=== PATIENT | male | born 1930 | race Caucasian/White ===

== ENCOUNTER 2017-09-11 14:16 | Inpatient (IN) | payer OTHER, MEDICARE ==
[~2017-09-11] VITALS: Ht 190.5 cm; Wt 83.0 kg
[2017-09-11 14:24] VITALS: BP_SYST 137
[2017-09-11] MEDS ORDERED: AMI200 GT (15:22)
[2017-09-11 15:25] LABS: BILIRUBIN,URINE NEGATIVE (NEGATIVE); CLARITY/URINE CLEAR (CLEAR); COLOR,URINE YELLOW (YELLOW); GLUCOSE,URINE NEGATIVE (NEGATIVE); KETONES,URINE NEGATIVE (NEGATIVE); LEUKOCYTE ESTERASE ,URINE 3+ (NEGATIVE); NITRITE, URINE NEGATIVE (NEGATIVE); PROTEIN URINE TRACE (NEGATIVE); UROBILINOGEN,URINE 0.2 (0.2-1.0)
[2017-09-11 15:26] LABS: BLOOD, URINE TRACE (NEGATIVE)
[2017-09-11] MEDS ORDERED: METO-442 GT (15:26)
[2017-09-11] MEDS ORDERED: VITD2000 GT (15:26)
[2017-09-11] MEDS ORDERED: CAT.1 GT (15:26)
[2017-09-11] MEDS ORDERED: DIPH25CA83 GT (15:26)
[2017-09-11] MEDS ORDERED: ARTT OP (15:29)
[2017-09-11 15:32] LABS: BACTERIA,URINE FEW /HPF (None Seen); WBC,URINE 20-50 /HPF (0-3)
[2017-09-11 15:33] LABS: ANION GAP 3 (5-15); BASOPHILS % (AUTO) 0.2 % (0.0-2.0); CALCIUM 8.6 mg/dL (8.4-11.0); CHLORIDE 97 mmol/L (98-107); CREATININE 0.85 mg/dL (0.55-1.30); EOSINOPHILS % (AUTO) 0.4 % (0.0-4.0); GLUCOSE 104 mg/dL (70-99); HEMATOCRIT 22.9 % (36-54); HEMOGLOBIN 7.3 g/dL (14.0-18.0); LYMPHOCYTES # (AUTO) 0.8 K/uL (1.0-5.5); LYMPHOCYTES % (AUTO) 9.9 % (20.5-51.5); MEAN CORPUSCULAR HEMOGLOBIN 26 pg (27-31); MEAN CORPUSCULAR HGB CONC 32 % (32-36); MEAN CORPUSCULAR VOLUME 81 fL (79.0-98.0); MONOCYTES # (AUTO) 0.5 K/uL (0.0-1.0); MONOCYTES % (AUTO) 6.6 % (1.7-9.3); NEUTROPHILS # (AUTO) 6.6 K/uL (1.8-7.7); NEUTROPHILS % (AUTO) 82.9 % (40.0-70.0); PLATELET COUNT (AUTO) 241 K/uL (130-430); POTASSIUM 3.9 mmol/L (3.5-5.1); RED BLOOD CELL COUNT(AUTO) 2.81 MIL/uL (4.2-6.2); RED CELL DISTRIBUTION WIDTH 20.4 % (9.0-15.0); SODIUM SERUM 131 mmol/L (136-145); UREA NITROGEN, BLOOD 38 mg/dL (8-21); WHITE BLOOD COUNT (AUTO) 7.9 K/uL (4.8-10.8)
[2017-09-11 15:37] LABS: INR 1.2 (0.80-1.20); PROTHROMBIN TIME 11.8 SECS (9.5-12.5)
[2017-09-11 15:51] LABS: ALANINE AMINOTRANSFERASE 41 U/L (12-78); ALBUMIN 2.2 g/dL (3.4-4.8); ASPARTATE AMINOTRANSFERASE 27 U/L (10-37); TOTAL BILIRUBIN 0.4 mg/dL (0.0-1.0)
[2017-09-11] MEDS ORDERED: cefTRIAXone 1 GM IVPB PREMIX 50 ML IV ONE (16:00)
[2017-09-11] MEDS ORDERED: DIPHENHYDRAMINE HCL 25 MG CAPSULE GT SCH (16:15)
[2017-09-11] MEDS ORDERED: TEARS ARTIFICIAL 15 ML DROPS OP SCH (16:15)
[2017-09-11] MEDS ORDERED: DIPHENHYDRAMINE INJ 50 MG/ML VIAL IVP PRN (16:30)
[2017-09-11] MEDS ORDERED: PANTOPRAZOLE SODIUM 40 MG/VIAL (PROTONIX) IVP ONE (16:30)
[2017-09-11] MEDS ORDERED: ACETAMINOPHEN 650 MG/20.3 ML UDC GT PRN (16:30)
[2017-09-11 16:37] LABS: TOTAL IRON BIND. CAPACITY 278 ug/dL (250-450)
[2017-09-11 16:59] VITALS: BP_SYST 157
[2017-09-11 19:01] VITALS: BP_SYST 157
[2017-09-11 20:05] VITALS: BP_SYST 138
[2017-09-11] MEDS: IPRATROPIUM/ALBUTEROL SULFATE 3 ML AMPUL.NEB INH SCH ×2 (20:19→23:24)
[2017-09-11] MEDS: METOPROLOL TARTRATE 50 MG TABLET GT SCH (21:10)
[2017-09-11] MEDS: TEARS ARTIFICIAL 15 ML DROPS OP SCH (21:11)
[2017-09-12 01:07] VITALS: BP_SYST 108
[2017-09-12] MEDS: IPRATROPIUM/ALBUTEROL SULFATE 3 ML AMPUL.NEB INH SCH ×6 (04:02→23:19)
[2017-09-12 07:55] VITALS: BP_SYST 148
[2017-09-12 08:02] LABS: BASOPHILS % (AUTO) 0.5 % (0.0-2.0); EOSINOPHILS % (AUTO) 0.9 % (0.0-4.0); HEMATOCRIT 25.9 % (36-54); HEMOGLOBIN 8.2 g/dL (14.0-18.0); LYMPHOCYTES # (AUTO) 0.7 K/uL (1.0-5.5); LYMPHOCYTES % (AUTO) 13.4 % (20.5-51.5); MEAN CORPUSCULAR HEMOGLOBIN 26 pg (27-31); MEAN CORPUSCULAR HGB CONC 32 % (32-36); MEAN CORPUSCULAR VOLUME 83 fL (79.0-98.0); MONOCYTES # (AUTO) 0.4 K/uL (0.0-1.0); MONOCYTES % (AUTO) 7.9 % (1.7-9.3); NEUTROPHILS # (AUTO) 3.8 K/uL (1.8-7.7); NEUTROPHILS % (AUTO) 77.3 % (40.0-70.0); PLATELET COUNT (AUTO) 220 K/uL (130-430); RED BLOOD CELL COUNT(AUTO) 3.14 MIL/uL (4.2-6.2); RED CELL DISTRIBUTION WIDTH 20.7 % (9.0-15.0); WHITE BLOOD COUNT (AUTO) 4.9 K/uL (4.8-10.8)
[2017-09-12 08:45] LABS: RETICULOCYTE COUNT 1.9 % (0.5-1.5)
[2017-09-12 08:52] LABS: ALANINE AMINOTRANSFERASE 40 U/L (12-78); ANION GAP 6 (5-15); ASPARTATE AMINOTRANSFERASE 39 U/L (10-37); CALCIUM 8.7 mg/dL (8.4-11.0); CHLORIDE 98 mmol/L (98-107); CHOLESTEROL 159 mg/dL (<200); CREATININE 0.89 mg/dL (0.55-1.30); GLUCOSE 148 mg/dL (70-99); HDL CHOLESTEROL 75 mg/dL (>45); LDL CHOLESTEROL 77 mg/dL (<100); SODIUM SERUM 133 mmol/L (136-145); TOTAL BILIRUBIN 0.4 mg/dL (0.0-1.0); TRIGLYCERIDES 48 mg/dL (30-150); UREA NITROGEN, BLOOD 34 mg/dL (8-21)
[2017-09-12] MEDS: METOPROLOL TARTRATE 50 MG TABLET GT SCH ×2 (09:24→21:35)
[2017-09-12] MEDS: CHOLECALCIFEROL (VITAMIN D3) 2,000 UNIT TABLET GT SCH (09:25)
[2017-09-12] MEDS: AMIODARONE HCL 200 MG TABLET GT SCH (09:25)
[2017-09-12] MEDS: PANTOPRAZOLE GRANULES PACKET 40 MG GT SCH (09:25)
[2017-09-12] MEDS: TEARS ARTIFICIAL 15 ML DROPS OP SCH ×2 (09:37→21:37)
[2017-09-12 12:46] VITALS: BP_SYST 152
[2017-09-12 13:25] LABS: FOLATE (FOLIC ACID) 12.8 ng/mL (>3.0)
[2017-09-12] MEDS ORDERED: cefTRIAXone 1 GM in D5W 50 ML IV ONE (13:30)
[2017-09-12] MEDS ORDERED: LEVOFLOXACIN 250 MG/D5W 50 ML IV ONE (14:00)
[2017-09-12] MEDS: BALSAM PERU/CASTOR OIL 60 GM OINT...G. TP SCH (15:45)
[2017-09-12 16:29] VITALS: BP_SYST 130
[2017-09-12] MEDS: MULTIVIT-MINERALS/FERROUS GLUC 15 ML UDC GT SCH (18:16)
[2017-09-12] MEDS: SOD FERRIC GLUC COMPLEX/SUC 125 MG in NS 100 ML IV SCH (18:17)
[2017-09-12 19:00] VITALS: BP_SYST 172
[2017-09-12 20:00] VITALS: BP_SYST 172
[2017-09-13 01:08] VITALS: BP_SYST 145
[2017-09-13] MEDS: IPRATROPIUM/ALBUTEROL SULFATE 3 ML AMPUL.NEB INH SCH ×6 (03:58→23:45)
[2017-09-13 06:48] LABS: BASOPHILS % (AUTO) 0.2 % (0.0-2.0); EOSINOPHILS # (AUTO) 0.1 K/uL (0.0-0.4); EOSINOPHILS % (AUTO) 2.7 % (0.0-4.0); HEMOGLOBIN 7.9 g/dL (14.0-18.0); LYMPHOCYTES # (AUTO) 0.7 K/uL (1.0-5.5); MEAN CORPUSCULAR HEMOGLOBIN 27 pg (27-31); MEAN CORPUSCULAR HGB CONC 33 % (32-36); MEAN CORPUSCULAR VOLUME 83 fL (79.0-98.0); MONOCYTES # (AUTO) 0.6 K/uL (0.0-1.0); MONOCYTES % (AUTO) 10.2 % (1.7-9.3); NEUTROPHILS # (AUTO) 4.1 K/uL (1.8-7.7); NEUTROPHILS % (AUTO) 73.9 % (40.0-70.0); PLATELET COUNT (AUTO) 231 K/uL (130-430); RED CELL DISTRIBUTION WIDTH 20.2 % (9.0-15.0); WHITE BLOOD COUNT (AUTO) 5.5 K/uL (4.8-10.8)
[2017-09-13 07:19] LABS: ANION GAP 7 (5-15); CALCIUM 8.6 mg/dL (8.4-11.0); CHLORIDE 98 mmol/L (98-107); CREATININE 0.88 mg/dL (0.55-1.30); GLUCOSE 105 mg/dL (70-99); POTASSIUM 3.6 mmol/L (3.5-5.1); SODIUM SERUM 134 mmol/L (136-145); UREA NITROGEN, BLOOD 29 mg/dL (8-21)
[2017-09-13 08:02] VITALS: BP_SYST 160
[2017-09-13] MEDS: cefTRIAXone 1 GM in D5W 50 ML IV SCH (08:50)
[2017-09-13] MEDS: METOPROLOL TARTRATE 50 MG TABLET GT SCH ×2 (08:51→20:21)
[2017-09-13] MEDS: AMIODARONE HCL 200 MG TABLET GT SCH (08:51)
[2017-09-13] MEDS: CHOLECALCIFEROL (VITAMIN D3) 2,000 UNIT TABLET GT SCH (09:00)
[2017-09-13] MEDS: PANTOPRAZOLE GRANULES PACKET 40 MG GT SCH (09:00)
[2017-09-13] MEDS: BALSAM PERU/CASTOR OIL 60 GM OINT...G. TP SCH (09:00)
[2017-09-13] MEDS: MULTIVIT-MINERALS/FERROUS GLUC 15 ML UDC GT SCH (09:00)
[2017-09-13] MEDS ORDERED: LEVOFLOXACIN 250 MG/D5W 50 ML IV SCH (10:00)
[2017-09-13] MEDS: TEARS ARTIFICIAL 15 ML DROPS OP SCH ×2 (10:22→20:21)
[2017-09-13 12:08] VITALS: BP_SYST 143
[2017-09-13] MEDS ORDERED: ONDANSETRON HCL 4 MG/2 ML VIAL IVP PRN (13:45)
[2017-09-13] MEDS ORDERED: fentaNYL CITRATE/PF 100 MCG/2 ML AMP IVP PRN ×2 (13:45)
[2017-09-13] MEDS ORDERED: NS IRRIG SOLN 1000 ML IR ONE (15:20)
[2017-09-13] MEDS ORDERED: BACITRACIN 1 GM OINT TP ONE (15:20)
[2017-09-13] MEDS ORDERED: fentaNYL CITRATE/PF 100 MCG/2 ML AMP IVP ONE (15:20)
[2017-09-13] MEDS ORDERED: NS 1000 ML BAG IV ONE (15:20)
[2017-09-13] MEDS ORDERED: MIDAZOLAM HCL 5 MG/ML VIAL (VERSED) IV ONE (15:20)
[2017-09-13 15:25] VITALS: BP_SYST 116
[2017-09-13] MEDS: SOD FERRIC GLUC COMPLEX/SUC 125 MG in NS 100 ML IV SCH (16:12)
[2017-09-13 20:00] VITALS: BP_SYST 162
[2017-09-13] MEDS: cloNIDine HCL 0.1 MG TABLET GT PRN (20:22)
[2017-09-13] MEDS: BALSAM PERU/CASTOR OIL 60 GM OINT...G. TP PRN (22:11)
[2017-09-13 23:45] VITALS: BP_SYST 105; BP_SYST 132
[2017-09-14] VITALS (7 sets, daily range): BP systolic 119–170
[2017-09-14] MEDS: IPRATROPIUM/ALBUTEROL SULFATE 3 ML AMPUL.NEB INH SCH ×5 (03:20→23:12)
[2017-09-14 07:31] LABS: ANION GAP 9 (5-15); CALCIUM 8.6 mg/dL (8.4-11.0); CHLORIDE 101 mmol/L (98-107); CREATININE 0.78 mg/dL (0.55-1.30); GLUCOSE 120 mg/dL (70-99); POTASSIUM 3.6 mmol/L (3.5-5.1); SODIUM SERUM 136 mmol/L (136-145); UREA NITROGEN, BLOOD 27 mg/dL (8-21)
[2017-09-14] MEDS: cefTRIAXone 1 GM in D5W 50 ML IV SCH (09:00)
[2017-09-14] MEDS: CHOLECALCIFEROL (VITAMIN D3) 2,000 UNIT TABLET GT SCH (09:01)
[2017-09-14] MEDS: AMIODARONE HCL 200 MG TABLET GT SCH (09:01)
[2017-09-14] MEDS: PANTOPRAZOLE GRANULES PACKET 40 MG GT SCH (09:02)
[2017-09-14] MEDS: METOPROLOL TARTRATE 50 MG TABLET GT SCH ×2 (09:02→21:20)
[2017-09-14] MEDS: MULTIVIT-MINERALS/FERROUS GLUC 15 ML UDC GT SCH (09:02)
[2017-09-14] MEDS: TEARS ARTIFICIAL 15 ML DROPS OP SCH ×2 (09:03→21:20)
[2017-09-14 09:13] LABS: BASOPHILS % (AUTO) 0.4 % (0.0-2.0); EOSINOPHILS # (AUTO) 0.1 K/uL (0.0-0.4); EOSINOPHILS % (AUTO) 2.8 % (0.0-4.0); HEMATOCRIT 25.3 % (36-54); HEMOGLOBIN 8.3 g/dL (14.0-18.0); LYMPHOCYTES # (AUTO) 0.8 K/uL (1.0-5.5); MEAN CORPUSCULAR HEMOGLOBIN 27 pg (27-31); MEAN CORPUSCULAR HGB CONC 33 % (32-36); MEAN CORPUSCULAR VOLUME 83 fL (79.0-98.0); MONOCYTES # (AUTO) 0.5 K/uL (0.0-1.0); MONOCYTES % (AUTO) 11.5 % (1.7-9.3); NEUTROPHILS # (AUTO) 3.4 K/uL (1.8-7.7); NEUTROPHILS % (AUTO) 69.3 % (40.0-70.0); PLATELET COUNT (AUTO) 214 K/uL (130-430); RED BLOOD CELL COUNT(AUTO) 3.05 MIL/uL (4.2-6.2); RED CELL DISTRIBUTION WIDTH 19.7 % (9.0-15.0); WHITE BLOOD COUNT (AUTO) 4.8 K/uL (4.8-10.8)
[2017-09-14] MEDS: BALSAM PERU/CASTOR OIL 60 GM OINT...G. TP SCH (09:19)
[2017-09-14 10:27] LABS: ERYTHROCYTE SEDIMENTATION RATE 82 MM/HR (0-15)
[2017-09-14] MEDS: SOD FERRIC GLUC COMPLEX/SUC 125 MG in NS 100 ML IV SCH (16:10)
[2017-09-15 03:30] VITALS: BP_SYST 149
[2017-09-15] MEDS: IPRATROPIUM/ALBUTEROL SULFATE 3 ML AMPUL.NEB INH SCH ×5 (03:46→23:17)
[2017-09-15] MEDS: BALSAM PERU/CASTOR OIL 60 GM OINT...G. TP PRN (05:00)
[2017-09-15 07:34] LABS: BASOPHILS % (AUTO) 0.2 % (0.0-2.0); EOSINOPHILS # (AUTO) 0.1 K/uL (0.0-0.4); EOSINOPHILS % (AUTO) 2.4 % (0.0-4.0); HEMATOCRIT 27.5 % (36-54); LYMPHOCYTES # (AUTO) 0.7 K/uL (1.0-5.5); MEAN CORPUSCULAR HEMOGLOBIN 27 pg (27-31); MEAN CORPUSCULAR HGB CONC 33 % (32-36); MEAN CORPUSCULAR VOLUME 83 fL (79.0-98.0); MONOCYTES # (AUTO) 0.6 K/uL (0.0-1.0); MONOCYTES % (AUTO) 13.5 % (1.7-9.3); NEUTROPHILS # (AUTO) 3.1 K/uL (1.8-7.7); NEUTROPHILS % (AUTO) 67.9 % (40.0-70.0); PLATELET COUNT (AUTO) 204 K/uL (130-430); RED CELL DISTRIBUTION WIDTH 20.1 % (9.0-15.0); WHITE BLOOD COUNT (AUTO) 4.5 K/uL (4.8-10.8)
[2017-09-15 07:49] LABS: ALANINE AMINOTRANSFERASE 36 U/L (12-78); ALBUMIN 2.3 g/dL (3.4-4.8); ANION GAP 6 (5-15); ASPARTATE AMINOTRANSFERASE 21 U/L (10-37); CALCIUM 8.8 mg/dL (8.4-11.0); CHLORIDE 99 mmol/L (98-107); CREATININE 0.76 mg/dL (0.55-1.30); GLUCOSE 129 mg/dL (70-99); POTASSIUM 3.1 mmol/L (3.5-5.1); SODIUM SERUM 134 mmol/L (136-145); TOTAL BILIRUBIN 0.4 mg/dL (0.0-1.0); UREA NITROGEN, BLOOD 21 mg/dL (8-21)
[2017-09-15 08:04] VITALS: BP_SYST 177
[2017-09-15] MEDS: cefTRIAXone 1 GM in D5W 50 ML IV SCH (08:50)
[2017-09-15] MEDS: TEARS ARTIFICIAL 15 ML DROPS OP SCH ×2 (08:51→21:56)
[2017-09-15] MEDS: MULTIVIT-MINERALS/FERROUS GLUC 15 ML UDC GT SCH (08:51)
[2017-09-15] MEDS: PANTOPRAZOLE GRANULES PACKET 40 MG GT SCH (08:52)
[2017-09-15] MEDS: METOPROLOL TARTRATE 50 MG TABLET GT SCH ×2 (08:52→21:56)
[2017-09-15] MEDS: AMIODARONE HCL 200 MG TABLET GT SCH (08:52)
[2017-09-15] MEDS: CHOLECALCIFEROL (VITAMIN D3) 2,000 UNIT TABLET GT SCH (08:52)
[2017-09-15] MEDS ORDERED: POTASSIUM CHLORIDE 20 MEQ/PKT PACKET PO ONE ×2 (10:00→12:45)
[2017-09-15] MEDS: cloNIDine HCL 0.1 MG TABLET GT PRN (10:24)
[2017-09-15] MEDS: MEROPENEM 1 GM in NS 100 ML IV SCH ×2 (13:04→21:55)
[2017-09-15] MEDS: SOD FERRIC GLUC COMPLEX/SUC 125 MG in NS 100 ML IV SCH (14:28)
[2017-09-15 15:30] VITALS: BP_SYST 102
[2017-09-15 15:41] VITALS: BP_SYST 169
[2017-09-15] MEDS: BALSAM PERU/CASTOR OIL 60 GM OINT...G. TP SCH (17:24)
[2017-09-15 20:09] VITALS: BP_SYST 154
[2017-09-15] MEDS: POTASSIUM CHLORIDE 20 MEQ/PKT PACKET PO SCH (21:55)
[2017-09-16 01:15] VITALS: BP_SYST 150
[2017-09-16] MEDS: IPRATROPIUM/ALBUTEROL SULFATE 3 ML AMPUL.NEB INH SCH ×6 (03:44→23:52)
[2017-09-16] MEDS: MEROPENEM 1 GM in NS 100 ML IV SCH ×3 (06:03→22:21)
[2017-09-16 08:06] VITALS: BP_SYST 156
[2017-09-16 08:07] LABS: BASOPHILS % (AUTO) 0.2 % (0.0-2.0); EOSINOPHILS # (AUTO) 0.1 K/uL (0.0-0.4); EOSINOPHILS % (AUTO) 1.8 % (0.0-4.0); HEMATOCRIT 26.3 % (36-54); HEMOGLOBIN 8.7 g/dL (14.0-18.0); LYMPHOCYTES # (AUTO) 0.5 K/uL (1.0-5.5); LYMPHOCYTES % (AUTO) 10.7 % (20.5-51.5); MEAN CORPUSCULAR HEMOGLOBIN 27 pg (27-31); MEAN CORPUSCULAR HGB CONC 33 % (32-36); MEAN CORPUSCULAR VOLUME 82 fL (79.0-98.0); MONOCYTES # (AUTO) 0.6 K/uL (0.0-1.0); MONOCYTES % (AUTO) 12.4 % (1.7-9.3); NEUTROPHILS # (AUTO) 3.5 K/uL (1.8-7.7); NEUTROPHILS % (AUTO) 74.9 % (40.0-70.0); PLATELET COUNT (AUTO) 209 K/uL (130-430); RED BLOOD CELL COUNT(AUTO) 3.19 MIL/uL (4.2-6.2); RED CELL DISTRIBUTION WIDTH 20.4 % (9.0-15.0); WHITE BLOOD COUNT (AUTO) 4.7 K/uL (4.8-10.8)
[2017-09-16 08:17] LABS: ANION GAP 7 (5-15); CALCIUM 8.6 mg/dL (8.4-11.0); CHLORIDE 102 mmol/L (98-107); CREATININE 0.68 mg/dL (0.55-1.30); GLUCOSE 130 mg/dL (70-99); POTASSIUM 3.8 mmol/L (3.5-5.1); SODIUM SERUM 135 mmol/L (136-145); UREA NITROGEN, BLOOD 18 mg/dL (8-21)
[2017-09-16] MEDS: CHOLECALCIFEROL (VITAMIN D3) 2,000 UNIT TABLET GT SCH (09:42)
[2017-09-16] MEDS: MULTIVIT-MINERALS/FERROUS GLUC 15 ML UDC GT SCH (09:42)
[2017-09-16] MEDS: POTASSIUM CHLORIDE 20 MEQ/PKT PACKET PO SCH ×2 (09:42→22:24)
[2017-09-16] MEDS: PANTOPRAZOLE GRANULES PACKET 40 MG GT SCH (09:42)
[2017-09-16] MEDS: AMIODARONE HCL 200 MG TABLET GT SCH (09:43)
[2017-09-16] MEDS: METOPROLOL TARTRATE 50 MG TABLET GT SCH ×2 (09:43→22:19)
[2017-09-16] MEDS: TEARS ARTIFICIAL 15 ML DROPS OP SCH ×2 (09:44→22:24)
[2017-09-16 13:03] VITALS: BP_SYST 155
[2017-09-16] MEDS ORDERED: MAGNESIUM CITRATE 300 ML ORAL SOLUTION PO ONE (14:00)
[2017-09-16] MEDS ORDERED: MINERAL OIL 30 ML UDC GT ONE (14:00)
[2017-09-16 14:04] LABS: INR 1.2 (0.80-1.20); PROTHROMBIN TIME 12.4 SECS (9.5-12.5)
[2017-09-16] MEDS: SOD FERRIC GLUC COMPLEX/SUC 125 MG in NS 100 ML IV SCH (14:05)
[2017-09-16] MEDS: cloNIDine HCL 0.1 MG TABLET GT PRN (15:59)
[2017-09-16] MEDS: BALSAM PERU/CASTOR OIL 60 GM OINT...G. TP SCH (16:00)
[2017-09-16 16:05] VITALS: BP_SYST 162
[2017-09-16 19:50] VITALS: BP_SYST 162
[2017-09-16] MEDS: MINERAL OIL 30 ML UDC GT SCH (22:17)
[2017-09-17] VITALS: BP_SYST 145
[2017-09-17] MEDS: IPRATROPIUM/ALBUTEROL SULFATE 3 ML AMPUL.NEB INH SCH ×4 (03:35→16:09)
[2017-09-17] MEDS: MEROPENEM 1 GM in NS 100 ML IV SCH (05:01)
[2017-09-17 06:49] LABS: BASOPHILS % (AUTO) 0.4 % (0.0-2.0); EOSINOPHILS # (AUTO) 0.1 K/uL (0.0-0.4); HEMATOCRIT 27.3 % (36-54); HEMOGLOBIN 9.1 g/dL (14.0-18.0); LYMPHOCYTES # (AUTO) 0.5 K/uL (1.0-5.5); LYMPHOCYTES % (AUTO) 9.9 % (20.5-51.5); MEAN CORPUSCULAR HEMOGLOBIN 28 pg (27-31); MEAN CORPUSCULAR HGB CONC 33 % (32-36); MEAN CORPUSCULAR VOLUME 84 fL (79.0-98.0); MONOCYTES # (AUTO) 0.5 K/uL (0.0-1.0); MONOCYTES % (AUTO) 8.8 % (1.7-9.3); NEUTROPHILS # (AUTO) 4.4 K/uL (1.8-7.7); NEUTROPHILS % (AUTO) 78.9 % (40.0-70.0); PLATELET COUNT (AUTO) 200 K/uL (130-430); RED BLOOD CELL COUNT(AUTO) 3.25 MIL/uL (4.2-6.2); WHITE BLOOD COUNT (AUTO) 5.5 K/uL (4.8-10.8)
[2017-09-17 07:18] LABS: ANION GAP 7 (5-15); CALCIUM 8.2 mg/dL (8.4-11.0); CHLORIDE 103 mmol/L (98-107); CREATININE 0.72 mg/dL (0.55-1.30); GLUCOSE 125 mg/dL (70-99); POTASSIUM 4.2 mmol/L (3.5-5.1); SODIUM SERUM 138 mmol/L (136-145); UREA NITROGEN, BLOOD 17 mg/dL (8-21)
[2017-09-17 08:00] VITALS: BP_SYST 168
[2017-09-17] MEDS ORDERED: SULFAMET 800MG/TMP 160MG, 20 ML UDBTL GT SCH (09:00)
[2017-09-17] MEDS ORDERED: FAMOTIDINE 20 MG TABLET GT SCH (09:00)
[2017-09-17] MEDS: MINERAL OIL 30 ML UDC GT SCH (09:40)
[2017-09-17] MEDS: CHOLECALCIFEROL (VITAMIN D3) 2,000 UNIT TABLET GT SCH (09:41)
[2017-09-17] MEDS: PANTOPRAZOLE GRANULES PACKET 40 MG GT SCH (09:41)
[2017-09-17] MEDS: POTASSIUM CHLORIDE 20 MEQ/PKT PACKET PO SCH (09:41)
[2017-09-17] MEDS: TEARS ARTIFICIAL 15 ML DROPS OP SCH (09:41)
[2017-09-17] MEDS: AMIODARONE HCL 200 MG TABLET GT SCH (09:42)
[2017-09-17] MEDS: METOPROLOL TARTRATE 50 MG TABLET GT SCH (09:42)
[2017-09-17] MEDS: MULTIVIT-MINERALS/FERROUS GLUC 15 ML UDC GT SCH (09:43)
[2017-09-17 10:06] VITALS: BP_SYST 178
[2017-09-17 12:50] VITALS: BP_SYST 155
[2017-09-17] MEDS ORDERED: CEFTAZIDIME 1 GM in D5W 50 ML IV SCH (14:00)
[2017-09-17] MEDS: SOD FERRIC GLUC COMPLEX/SUC 125 MG in NS 100 ML IV SCH (15:31)
[2017-09-17] MEDS: BALSAM PERU/CASTOR OIL 60 GM OINT...G. TP SCH (15:31)
[2017-09-17 16:00] VITALS: BP_SYST 144
== END 2017-09-17 19:05 | DRG 130 ==
LOC: SED 14:16 → STU 16:13
PROVIDERS: ADMIT Internal Medicine; ATTEND Internal Medicine
PROC: 30233N1 Transfusion of Nonautologous Red Blood Cells into Peripheral Vein, Percutaneous Approach (ICD-10-PCS; principal; 2017-09-11)
PROC: 0JB70ZZ Excision of Back Subcutaneous Tissue and Fascia, Open Approach (ICD-10-PCS; 2017-09-16)
PROC: 5A1955Z Respiratory Ventilation, Greater than 96 Consecutive Hours (ICD-10-PCS; 2017-09-16)
PROC: 05H633Z Insertion of Infusion Device into Left Subclavian Vein, Percutaneous Approach (ICD-10-PCS; 2017-09-16)
PROC: B547ZZA Ultrasonography of Left Subclavian Vein, Guidance (ICD-10-PCS; 2017-09-16)
DX: J18.9 Pneumonia, unspecified organism (principal); E43 Unspecified severe protein-calorie malnutrition; G93.40 Encephalopathy, unspecified; J90 Pleural effusion, not elsewhere classified; L89.154 Pressure ulcer of sacral region, stage 4; I82.402 Acute embolism and thrombosis of unspecified deep veins of left lower extremity; J96.10 Chronic respiratory failure, unspecified whether with hypoxia or hypercapnia; F03.90 Unspecified dementia, unspecified severity, without behavioral disturbance, psychotic disturbance, mood disturbance, and anxiety; Z93.0 Tracheostomy status; Z86.74 Personal history of sudden cardiac arrest; Z99.11 Dependence on respirator [ventilator] status; D50.9 Iron deficiency anemia, unspecified; I10 Essential (primary) hypertension; E87.1 Hypo-osmolality and hyponatremia; G20 Parkinson's disease; J44.9 Chronic obstructive pulmonary disease, unspecified; N39.0 Urinary tract infection, site not specified; E86.0 Dehydration; I48.0 Paroxysmal atrial fibrillation; R60.1 Generalized edema; E11.9 Type 2 diabetes mellitus without complications; B96.4 Proteus (mirabilis) (morganii) as the cause of diseases classified elsewhere; B96.5 Pseudomonas (aeruginosa) (mallei) (pseudomallei) as the cause of diseases classified elsewhere; R13.10 Dysphagia, unspecified; E87.6 Hypokalemia; Z79.899 Other long term (current) drug therapy; Z93.1 Gastrostomy status; Z68.22 Body mass index [BMI] 22.0-22.9, adult
CPT/HCPCS: 36415; 71045; 74018; 78315; 80048; 80053; 80061; 81000-TC; 82550-TC; 82607; 82746; 83540-TC; 83550-TC; 83605; 83735-TC; 83880; 84443-TC; 84484; 85025; 85044-TC; 85610-TC; 85651-TC; 85730-TC; 86140; 86886; 86900; 86901; 86920; 87040-TC; 87070-TC; 87081; 87086; 87186-TC; 87205-TC; 93005; 93970; 94002; 94003; 94640; 94760; 96365; 99285; A9503; C1751; C1769; J0696; J0713; J1956; J2185; J2250; J2916; J3010; J7030; J7040; J7060; J7620; P9021